=== PATIENT | female | born 1975 | race Two or more races ===

== ENCOUNTER 2020-10-26 10:28 | Outpatient (CLI) | payer OTHER, SELFPAY | END 2020-10-26 10:29 | disposition home or self-care (01) | LOC: ANHCOVIDVC 10:29 | PROVIDERS: PCP Family Medicine | DX: Z23 Encounter for immunization (principal) | CPT/HCPCS: 0001A; 91300 ==

== ENCOUNTER 2020-11-16 09:55 | Outpatient (CLI) | payer OTHER, SELFPAY | END 2020-11-16 09:56 | disposition home or self-care (01) | LOC: ANHCOVIDVC 09:55 | PROVIDERS: PCP Family Medicine | DX: Z23 Encounter for immunization (principal) | CPT/HCPCS: 0002A; 91300 ==